=== PATIENT | male | born 1935 | race Caucasian/White ===

== ENCOUNTER 2018-05-13 19:56 | Emergency (ER) | payer SELFPAY, BC, MEDICARE | END 2018-05-13 21:00 | disposition left against medical advice (07) | LOC: E/R 19:56 | DX: Z53.21 Procedure and treatment not carried out due to patient leaving prior to being seen by health care provider (principal) | CPT/HCPCS: 93005 ==

== ENCOUNTER 2018-05-15 11:59 | Inpatient (IN) | payer MEDICARE, BC ==
[2018-05-15 13:29] LABS: ADD MAN DIFF? NO
[2018-05-15 13:41] LABS: WHITE BLOOD COUNT 6.4 10^3/ul (4.8-10.8)
[2018-05-15 13:41] LABS: ABNORMAL IP MESSAGE 1; BASOPHIL # 0.1 10^3/ul (0.0-0.1); BASOPHILS % 1.1 % (0.0-2.0); EOSINOPHILS # 0.1 10^3/ul (0.0-0.5); EOSINOPHILS % 1.4 % (0.0-7.0); HEMOGLOBIN 10.6 g/dl (14.0-18.0); LYMPHOCYTES # 0.4 10^3/ul (0.8-2.9); LYMPHOCYTES % 5.8 % (15.0-51.0); MEAN CORPUSCULAR HGB CONC 31.2 g/dl (32.0-37.0); MEAN CORPUSCULAR VOLUME 86.7 fl (82.0-101.0); MEAN PLATELET VOLUME 10.1 fl (7.4-10.4); MONOCYTE # 1.1 10^3/ul (0.3-0.9); MONOCYTES % 16.5 % (0.0-11.0); NEUTROPHIL # 4.8 10^3/ul (1.6-7.5); NEUTROPHILS % 74.6 % (39.0-77.0); PLATELET COUNT 362 10^3/UL (140-415); POSITIVE DIFF @See below; RED BLOOD COUNT 3.92 10^6/ul (4.70-6.10); RED CELL DISTRIBUTION WIDTH 16.4 % (11.5-14.5)
[2018-05-15 14:02] LABS: INR 1.12; PARTIAL THROMBOPLASTIN TIME 29.5 Sec (23.0-35.0); PROTIME 14.5 Sec (11.9-14.9); PT RATIO 1.1
[2018-05-15 14:03] LABS: ANION GAP 6 (5-13); BLOOD UREA NITROGEN 40 mg/dl (7-20); CALCIUM 9.9 mg/dl (8.4-10.2); CARBON DIOXIDE 31 mmol/L (21-31); CHLORIDE 102 mmol/L (97-110); CREATININE 1.38 mg/dl (0.61-1.24); GLUCOSE 99 mg/dl (70-220); POTASSIUM 4.8 mmol/L (3.5-5.1); SODIUM 139 mmol/L (135-144)
[2018-05-15 14:14] LABS: B-TYPE NATRIURETIC PEPTIDE 1730 PG/ML (0-450); TROPONIN-I 0.013 ng/ml (0.000-0.120)
[2018-05-15] MEDS: FUROSEMIDE 20 MG INJ IV (14:55)
[2018-05-15 15:38] LABS: URINE PH (Dip) POC 5.5 (5.0-8.5)
[2018-05-15 15:38] LABS: URINE BLOOD (Dip) POC Trace-intact (NEGATIVE); URINE GLUCOSE (Dip) POC Negative (NEGATIVE); URINE KETONES (Dip) POC Negative (NEGATIVE); URINE LEUKOCYTE EST (Dip) POC 1+ (NEGATIVE); URINE NITRITE (Dip) POC Negative (NEGATIVE); URINE TOTAL PROTEIN POC Trace (NEGATIVE)
[2018-05-15] MEDS ORDERED: ONDANSETRON 4 MG INJ IV (17:00)
[2018-05-15] MEDS ORDERED: NACL 0.9% 3 ML SYG IV (17:00)
[2018-05-15] MEDS ORDERED: DOCUSATE SODIUM 100 MG CAP PO (17:00)
[2018-05-15] MEDS ORDERED: ZOLPIDEM 5 MG TAB PO (17:00)
[2018-05-15 18:15] LABS: AADO2 Arterial 21.2 mmHg (7.0-24.0); Allen Test ACCEPTAB; Arterial Base Excess 4.8 mmol/L (-3.0-3); Arterial Blood Gas Oxygen Sat 93.8 mmHG (95.0-100.0); Arterial COHb 0.7 % (0.0-3.0); Arterial MetHb 0.2 % (0.0-1.5); Arterial pCO2 47.1 mmhg (35-45); MODE ROOM AIR; Site Right Radial
[2018-05-16] MEDS: POTASSIUM CHLORIDE (SR) 10 MEQ TAB PO (10:28)
[2018-05-16] MEDS: FUROSEMIDE 40 MG INJ IV ×2 (10:35→17:20)
[2018-05-16 10:40] LABS: ANION GAP 7 (5-13); BLOOD UREA NITROGEN 40 mg/dl (7-20); CALCIUM 9.9 mg/dl (8.4-10.2); CARBON DIOXIDE 32 mmol/L (21-31); CHLORIDE 101 mmol/L (97-110); CREATININE 1.44 mg/dl (0.61-1.24); GLUCOSE 93 mg/dl (70-220); MAGNESIUM 2.1 mg/dl (1.7-2.5); PHOSPHORUS 3.7 mg/dl (2.5-4.9); POTASSIUM 4.5 mmol/L (3.5-5.1); SODIUM 140 mmol/L (135-144)
[2018-05-16 10:43] LABS: HEMOGLOBIN A1C 5.5 % (0-5.9)
[2018-05-17 09:14] LABS: ADD MAN DIFF? NO
[2018-05-17 09:17] LABS: WHITE BLOOD COUNT 4.7 10^3/ul (4.8-10.8)
[2018-05-17 09:17] LABS: ABNORMAL IP MESSAGE 1; BASOPHIL # 0.1 10^3/ul (0.0-0.1); BASOPHILS % 1.3 % (0.0-2.0); EOSINOPHILS # 0.1 10^3/ul (0.0-0.5); EOSINOPHILS % 2.1 % (0.0-7.0); HEMATOCRIT 33.2 % (42.0-52.0); HEMOGLOBIN 10.5 g/dl (14.0-18.0); LYMPHOCYTES # 0.3 10^3/ul (0.8-2.9); LYMPHOCYTES % 6.2 % (15.0-51.0); MEAN CORPUSCULAR HEMOGLOBIN 27.3 pg (29.0-33.0); MEAN CORPUSCULAR HGB CONC 31.6 g/dl (32.0-37.0); MEAN CORPUSCULAR VOLUME 86.2 fl (82.0-101.0); MEAN PLATELET VOLUME 9.7 fl (7.4-10.4); MONOCYTE # 0.8 10^3/ul (0.3-0.9); MONOCYTES % 16.5 % (0.0-11.0); NEUTROPHIL # 3.4 10^3/ul (1.6-7.5); NEUTROPHILS % 73.5 % (39.0-77.0); PLATELET COUNT 367 10^3/UL (140-415); POSITIVE DIFF @See below; RED BLOOD COUNT 3.85 10^6/ul (4.70-6.10)
[2018-05-17 09:45] LABS: ANION GAP 9 (5-13); BLOOD UREA NITROGEN 42 mg/dl (7-20); CALCIUM 9.8 mg/dl (8.4-10.2); CARBON DIOXIDE 37 mmol/L (21-31); CHLORIDE 95 mmol/L (97-110); CREATININE 1.67 mg/dl (0.61-1.24); GLUCOSE 217 mg/dl (70-220); SODIUM 141 mmol/L (135-144)
[2018-05-17 10:19] LABS: HEPATITIS B SURFACE ANTIGEN NEGATIVE (NEGATIVE)
[2018-05-17 10:37] LABS: HEPATITIS B CORE ANTIBODY NEGATIVE (NEGATIVE); HEPATITIS C VIRAL ANTIBODY NEGATIVE (NEGATIVE)
[2018-05-17 11:17] LABS: HEPATITIS B SURFACE ANTIBODY NEGATIVE (NEGATIVE)
[2018-05-17 15:16] LABS: RHEUMATOID FACTOR NEGATIVE (NEGATIVE)
[2018-05-17] MEDS: LEVALBUTEROL (NEB) 0.63 MG/3 ML AMP HHN ×2 (15:44→23:56)
[2018-05-18 06:24] LABS: ADD MAN DIFF? NO
[2018-05-18 06:38] LABS: WHITE BLOOD COUNT 5.4 10^3/ul (4.8-10.8)
[2018-05-18 06:38] LABS: ABNORMAL IP MESSAGE 1; BASOPHIL # 0.1 10^3/ul (0.0-0.1); BASOPHILS % 1.3 % (0.0-2.0); EOSINOPHILS # 0.1 10^3/ul (0.0-0.5); EOSINOPHILS % 2.2 % (0.0-7.0); HEMATOCRIT 31.4 % (42.0-52.0); HEMOGLOBIN 9.7 g/dl (14.0-18.0); LYMPHOCYTES # 0.4 10^3/ul (0.8-2.9); LYMPHOCYTES % 7.9 % (15.0-51.0); MEAN CORPUSCULAR HEMOGLOBIN 26.6 pg (29.0-33.0); MEAN CORPUSCULAR HGB CONC 30.9 g/dl (32.0-37.0); MONOCYTES % 18.5 % (0.0-11.0); NEUTROPHIL # 3.7 10^3/ul (1.6-7.5); NEUTROPHILS % 69.7 % (39.0-77.0); PLATELET COUNT 365 10^3/UL (140-415); POSITIVE DIFF @See below; RED BLOOD COUNT 3.65 10^6/ul (4.70-6.10); RED CELL DISTRIBUTION WIDTH 15.9 % (11.5-14.5)
[2018-05-18 07:00] LABS: ALANINE AMINOTRANSFERASE 15 IU/L (13-69); ALBUMIN 3.4 g/dl (3.3-4.9); ALBUMIN/GLOBULIN RATIO 1.13; ALKALINE PHOSPHATASE 67 IU/L (42-121); ANION GAP 5 (5-13); ASPARTATE AMINO TRANSFERASE 19 IU/L (15-46); BILIRUBIN,INDIRECT 0.2 mg/dl (0-1.1); BILIRUBIN,TOTAL 0.2 mg/dl (0.2-1.3); BLOOD UREA NITROGEN 41 mg/dl (7-20); CALCIUM 9.5 mg/dl (8.4-10.2); CARBON DIOXIDE 37 mmol/L (21-31); CHLORIDE 97 mmol/L (97-110); CREATININE 1.47 mg/dl (0.61-1.24); GLUCOSE 106 mg/dl (70-220); POTASSIUM 4.4 mmol/L (3.5-5.1); SODIUM 139 mmol/L (135-144); TOTAL PROTEIN 6.4 g/dl (6.1-8.1)
[2018-05-18 07:51] LABS: MAGNESIUM 2.2 mg/dl (1.7-2.5)
[2018-05-18] MEDS: LEVALBUTEROL (NEB) 0.63 MG/3 ML AMP HHN ×2 (08:14→16:04)
[2018-05-18 08:59] LABS: ERYTHROCYTE SEDIMENTATION RATE 18 mm/Hr (0-20)
[2018-05-18] MEDS: POTASSIUM CHLORIDE (SR) 10 MEQ TAB PO (12:39)
[2018-05-18] MEDS: FUROSEMIDE 40 MG INJ IV (12:40)
[2018-05-18] MEDS: AZITHROMYCIN 250 MG TAB PO (14:36)
[2018-05-18] MEDS: AMPICILLIN/SULB 3 GM/NS (PMX) 100 ML IVPB ×3 (15:35→23:40)
[2018-05-18] MEDS: GUAIFENESIN/DM 5ML CUP PO (21:41)
[2018-05-19] MEDS: LEVALBUTEROL (NEB) 0.63 MG/3 ML AMP HHN ×4 (00:45→23:39)
[2018-05-19] MEDS: GUAIFENESIN/DM 5ML CUP PO ×2 (03:45→08:28)
[2018-05-19 05:37] LABS: ADD MAN DIFF? NO
[2018-05-19] MEDS: AMPICILLIN/SULB 3 GM/NS (PMX) 100 ML IVPB ×4 (05:49→23:16)
[2018-05-19 05:52] LABS: ABNORMAL IP MESSAGE 1; BASOPHIL # 0.1 10^3/ul (0.0-0.1); EOSINOPHILS # 0.1 10^3/ul (0.0-0.5); EOSINOPHILS % 1.6 % (0.0-7.0); HEMATOCRIT 30.9 % (42.0-52.0); HEMOGLOBIN 9.7 g/dl (14.0-18.0); LYMPHOCYTES # 0.3 10^3/ul (0.8-2.9); LYMPHOCYTES % 4.3 % (15.0-51.0); MEAN CORPUSCULAR HEMOGLOBIN 26.8 pg (29.0-33.0); MEAN CORPUSCULAR HGB CONC 31.4 g/dl (32.0-37.0); MEAN CORPUSCULAR VOLUME 85.4 fl (82.0-101.0); MONOCYTE # 1.4 10^3/ul (0.3-0.9); MONOCYTES % 19.6 % (0.0-11.0); NEUTROPHIL # 5.1 10^3/ul (1.6-7.5); NEUTROPHILS % 72.9 % (39.0-77.0); PLATELET COUNT 360 10^3/UL (140-415); POSITIVE DIFF @See below; RED BLOOD COUNT 3.62 10^6/ul (4.70-6.10); RED CELL DISTRIBUTION WIDTH 15.9 % (11.5-14.5)
[2018-05-19 05:52] LABS: WHITE BLOOD COUNT 6.9 10^3/ul (4.8-10.8)
[2018-05-19 06:06] LABS: ANION GAP 9 (5-13); BLOOD UREA NITROGEN 38 mg/dl (7-20); CALCIUM 9.4 mg/dl (8.4-10.2); CARBON DIOXIDE 36 mmol/L (21-31); CHLORIDE 96 mmol/L (97-110); CREATININE 1.47 mg/dl (0.61-1.24); GLUCOSE 117 mg/dl (70-220); MAGNESIUM 2.1 mg/dl (1.7-2.5); POTASSIUM 4.7 mmol/L (3.5-5.1); SODIUM 141 mmol/L (135-144)
[2018-05-19] MEDS: AZITHROMYCIN 250 MG TAB PO (08:28)
[2018-05-19 08:51] LABS: AMMONIA 23 umol/l (9-30)
[2018-05-19] MEDS: LORATADINE 10 MG TAB PO (11:00)
[2018-05-19] MEDS ORDERED: HYDROCODONE/HOMATROPINE 5ML CUP PO (13:00)
[2018-05-19 13:47] LABS: ANA SCREEN NEGATIVE (NEGATIVE)
[2018-05-19] MEDS: HYDROCODONE/HOMATROPINE 5ML CUP PO ×2 (14:19→20:47)
[2018-05-19] MEDS: SACCHAROMYCES BOULARDII 250 MG CAP PO (20:47)
[2018-05-20] MEDS: HYDROCODONE/HOMATROPINE 5ML CUP PO (02:46)
[2018-05-20] MEDS: AMPICILLIN/SULB 3 GM/NS (PMX) 100 ML IVPB (06:19)
[2018-05-20] MEDS: LEVALBUTEROL (NEB) 0.63 MG/3 ML AMP HHN ×2 (08:00→17:14)
[2018-05-20] MEDS: LORATADINE 10 MG TAB PO (08:26)
[2018-05-20] MEDS: AZITHROMYCIN 250 MG TAB PO (08:47)
[2018-05-20] MEDS: AMOXICILLIN/CLAV 875 MG TAB PO (08:47)
[2018-05-20] MEDS: L ACIDOPHIL/B LACTIS/B LONGUM CAPSULE PO ×2 (08:47→20:09)
[2018-05-20] MEDS: FUROSEMIDE 40 MG INJ IV (10:37)
[2018-05-20 11:41] LABS: NIL 0.02 IU/mL; QUANTIFERON(R)-TB GOLD NEGATIVE (NEGATIVE); TB2-NIL 0.01 IU/mL
[2018-05-20 14:45] LABS: ADD UMIC YES; UR ASCORBIC ACID NEGATIVE (NEGATIVE); UR BILIRUBIN (Dip) NEGATIVE (NEGATIVE); UR BLOOD (Dip) 2+ mg/dL (NEGATIVE); UR CLARITY CLEAR (CLEAR); UR COLOR YELLOW (YELLOW); UR GLUCOSE (Dip) NEGATIVE (NEGATIVE); UR KETONES (Dip) NEGATIVE (NEGATIVE); UR LEUKOCYTE ESTERASE (Dip) 1+ Leu/ul (NEGATIVE); UR MUCUS FEW /HPF (NONE SEEN); UR NITRITE (Dip) NEGATIVE (NEGATIVE); UR RBC 1 /HPF (0-5); UR TOTAL PROTEIN (Dip) NEGATIVE (NEGATIVE); UR UROBILINOGEN (Dip) NEGATIVE (NEGATIVE); UR WBC 2 /HPF (0-5)
[2018-05-20] MEDS: DIPHENHYDRAMINE 25 MG CAP PO (20:10)
[2018-05-21] MEDS: LEVALBUTEROL (NEB) 0.63 MG/3 ML AMP HHN ×3 (00:48→15:01)
[2018-05-21 05:39] LABS: ADD MAN DIFF? NO
[2018-05-21 05:48] LABS: ABNORMAL IP MESSAGE 1; BASOPHIL # 0.1 10^3/ul (0.0-0.1); BASOPHILS % 0.7 % (0.0-2.0); EOSINOPHILS % 0.1 % (0.0-7.0); HEMATOCRIT 29.9 % (42.0-52.0); HEMOGLOBIN 9.4 g/dl (14.0-18.0); LYMPHOCYTES # 0.2 10^3/ul (0.8-2.9); LYMPHOCYTES % 2.4 % (15.0-51.0); MEAN CORPUSCULAR HEMOGLOBIN 26.3 pg (29.0-33.0); MEAN CORPUSCULAR HGB CONC 31.4 g/dl (32.0-37.0); MEAN CORPUSCULAR VOLUME 83.8 fl (82.0-101.0); MEAN PLATELET VOLUME 9.8 fl (7.4-10.4); MONOCYTE # 1.4 10^3/ul (0.3-0.9); MONOCYTES % 16.4 % (0.0-11.0); NEUTROPHIL # 6.7 10^3/ul (1.6-7.5); NEUTROPHILS % 79.7 % (39.0-77.0); PLATELET COUNT 363 10^3/UL (140-415); POSITIVE DIFF @See below; RED BLOOD COUNT 3.57 10^6/ul (4.70-6.10); RED CELL DISTRIBUTION WIDTH 16.1 % (11.5-14.5)
[2018-05-21 05:48] LABS: WHITE BLOOD COUNT 8.4 10^3/ul (4.8-10.8)
[2018-05-21 06:21] LABS: ALANINE AMINOTRANSFERASE 17 IU/L (13-69); ALBUMIN 3.8 g/dl (3.3-4.9); ALBUMIN/GLOBULIN RATIO 1.31; ALKALINE PHOSPHATASE 73 IU/L (42-121); ANION GAP 9 (5-13); ASPARTATE AMINO TRANSFERASE 25 IU/L (15-46); BILIRUBIN,INDIRECT 0.3 mg/dl (0-1.1); BILIRUBIN,TOTAL 0.3 mg/dl (0.2-1.3); BLOOD UREA NITROGEN 39 mg/dl (7-20); CALCIUM 9.9 mg/dl (8.4-10.2); CARBON DIOXIDE 33 mmol/L (21-31); CHLORIDE 94 mmol/L (97-110); CREATININE 1.63 mg/dl (0.61-1.24); GLUCOSE 137 mg/dl (70-220); POTASSIUM 4.5 mmol/L (3.5-5.1); SODIUM 136 mmol/L (135-144); TOTAL PROTEIN 6.7 g/dl (6.1-8.1)
[2018-05-21] MEDS: AZITHROMYCIN 250 MG TAB PO (08:47)
[2018-05-21] MEDS: FUROSEMIDE 20 MG TAB PO (08:47)
[2018-05-21] MEDS: L ACIDOPHIL/B LACTIS/B LONGUM CAPSULE PO ×2 (08:47→20:33)
[2018-05-21] MEDS: LORATADINE 10 MG TAB PO (08:48)
[2018-05-21] MEDS: ACETAMINOPHEN 325 MG TAB PO (14:20)
[2018-05-21] MEDS: HYDROCODONE/HOMATROPINE 5ML CUP PO ×2 (14:25→20:33)
[2018-05-22] MEDS: LEVALBUTEROL (NEB) 0.63 MG/3 ML AMP HHN ×3 (00:14→15:37)
[2018-05-22 05:41] LABS: ADD MAN DIFF? NO
[2018-05-22 05:45] LABS: ABNORMAL IP MESSAGE 1; BASOPHILS % 0.6 % (0.0-2.0); EOSINOPHILS % 0.3 % (0.0-7.0); HEMATOCRIT 28.9 % (42.0-52.0); HEMOGLOBIN 8.9 g/dl (14.0-18.0); LYMPHOCYTES # 0.2 10^3/ul (0.8-2.9); LYMPHOCYTES % 3.2 % (15.0-51.0); MEAN CORPUSCULAR HGB CONC 30.8 g/dl (32.0-37.0); MEAN CORPUSCULAR VOLUME 84.5 fl (82.0-101.0); MEAN PLATELET VOLUME 9.7 fl (7.4-10.4); MONOCYTE # 1.1 10^3/ul (0.3-0.9); MONOCYTES % 17.4 % (0.0-11.0); NEUTROPHIL # 4.9 10^3/ul (1.6-7.5); PLATELET COUNT 311 10^3/UL (140-415); POSITIVE DIFF @See below; RED BLOOD COUNT 3.42 10^6/ul (4.70-6.10); RED CELL DISTRIBUTION WIDTH 16.2 % (11.5-14.5)
[2018-05-22 05:45] LABS: WHITE BLOOD COUNT 6.3 10^3/ul (4.8-10.8)
[2018-05-22 06:11] LABS: ANION GAP 10 (5-13)
[2018-05-22 06:13] LABS: BLOOD UREA NITROGEN 48 mg/dl (7-20); CALCIUM 9.7 mg/dl (8.4-10.2); CARBON DIOXIDE 34 mmol/L (21-31); CHLORIDE 93 mmol/L (97-110); CREATININE 1.59 mg/dl (0.61-1.24); GLUCOSE 114 mg/dl (70-220); POTASSIUM 4.8 mmol/L (3.5-5.1); SODIUM 137 mmol/L (135-144)
[2018-05-22] MEDS: LORATADINE 10 MG TAB PO (08:46)
[2018-05-22] MEDS: L ACIDOPHIL/B LACTIS/B LONGUM CAPSULE PO ×2 (08:46→20:51)
[2018-05-22] MEDS: AZITHROMYCIN 250 MG TAB PO (08:46)
[2018-05-22] MEDS: FUROSEMIDE 40 MG TAB PO (11:55)
[2018-05-22] MEDS: predniSONE 20 MG TAB PO (11:55)
[2018-05-22 13:47] LABS: PROCALCITONIN 0.16 ng/mL (<0.10)
[2018-05-22] MEDS: ACETAMINOPHEN 325 MG TAB PO (14:33)
[2018-05-22] MEDS: HYDROCODONE/HOMATROPINE 5ML CUP PO ×2 (14:38→20:51)
[2018-05-22 16:51] LABS: MYCOPLASMA PNEUMONIAE AB (IGG) 1.63
[2018-05-23] MEDS: LEVALBUTEROL (NEB) 0.63 MG/3 ML AMP HHN ×4 (00:11→23:56)
[2018-05-23] MEDS: HYDROCODONE/HOMATROPINE 5ML CUP PO (03:53)
[2018-05-23] MEDS: predniSONE 20 MG TAB PO (08:48)
[2018-05-23] MEDS: L ACIDOPHIL/B LACTIS/B LONGUM CAPSULE PO ×2 (08:49→20:52)
[2018-05-23] MEDS: LORATADINE 10 MG TAB PO (08:49)
[2018-05-23] MEDS: FUROSEMIDE 40 MG TAB PO ×2 (08:50→17:06)
[2018-05-23] MEDS: GUAIFENESIN/DM 5ML CUP PO (23:02)
[2018-05-24] MEDS: FUROSEMIDE 40 MG TAB PO (05:12)
[2018-05-24 06:06] LABS: ADD MAN DIFF? NO
[2018-05-24 06:09] LABS: ABNORMAL IP MESSAGE 1; BASOPHILS % 0.2 % (0.0-2.0); HEMATOCRIT 26.6 % (42.0-52.0); HEMOGLOBIN 8.4 g/dl (14.0-18.0); LYMPHOCYTES # 0.3 10^3/ul (0.8-2.9); LYMPHOCYTES % 4.7 % (15.0-51.0); MEAN CORPUSCULAR HGB CONC 31.6 g/dl (32.0-37.0); MEAN CORPUSCULAR VOLUME 82.4 fl (82.0-101.0); MEAN PLATELET VOLUME 10.5 fl (7.4-10.4); MONOCYTES % 16.1 % (0.0-11.0); NEUTROPHIL # 4.7 10^3/ul (1.6-7.5); NEUTROPHILS % 78.5 % (39.0-77.0); PLATELET COUNT 289 10^3/UL (140-415); POSITIVE DIFF @See below; RED BLOOD COUNT 3.23 10^6/ul (4.70-6.10); RED CELL DISTRIBUTION WIDTH 16.3 % (11.5-14.5)
[2018-05-24 06:37] LABS: ALANINE AMINOTRANSFERASE 18 IU/L (13-69); ALBUMIN 3.5 g/dl (3.3-4.9); ALKALINE PHOSPHATASE 59 IU/L (42-121); ANION GAP 9 (5-13); ASPARTATE AMINO TRANSFERASE 26 IU/L (15-46); BILIRUBIN,INDIRECT 0.1 mg/dl (0-1.1); BILIRUBIN,TOTAL 0.1 mg/dl (0.2-1.3); BLOOD UREA NITROGEN 58 mg/dl (7-20); CARBON DIOXIDE 33 mmol/L (21-31); CHLORIDE 95 mmol/L (97-110); CREATININE 1.63 mg/dl (0.61-1.24); GLUCOSE 110 mg/dl (70-220); POTASSIUM 4.7 mmol/L (3.5-5.1); SODIUM 137 mmol/L (135-144); TOTAL PROTEIN 6.4 g/dl (6.1-8.1)
[2018-05-24] MEDS: LEVALBUTEROL (NEB) 0.63 MG/3 ML AMP HHN ×2 (07:57→15:54)
[2018-05-24] MEDS: predniSONE 20 MG TAB PO (08:26)
[2018-05-24] MEDS: LORATADINE 10 MG TAB PO ×3 (08:26→09:00)
[2018-05-24] MEDS: BUDESONIDE (NEB) 0.5MG/2ML AMP HHN ×2 (10:30→20:57)
[2018-05-24] MEDS: L ACIDOPHIL/B LACTIS/B LONGUM CAPSULE PO ×2 (10:43→20:50)
[2018-05-24] MEDS: DIGOXIN 0.125 MG TAB PO (13:38)
[2018-05-24] MEDS: FUROSEMIDE 40 MG INJ IV (17:03)
[2018-05-25] MEDS: LEVALBUTEROL (NEB) 0.63 MG/3 ML AMP HHN ×3 (00:12→16:50)
[2018-05-25] MEDS: GUAIFENESIN/DM 5ML CUP PO (00:33)
[2018-05-25 05:31] LABS: ABNORMAL IP MESSAGE 1; HEMOGLOBIN 7.8 g/dl (14.0-18.0); MEAN CORPUSCULAR HEMOGLOBIN 25.8 pg (29.0-33.0); MEAN CORPUSCULAR HGB CONC 31.2 g/dl (32.0-37.0); MEAN CORPUSCULAR VOLUME 82.8 fl (82.0-101.0); PLATELET COUNT 239 10^3/UL (140-415); POSITIVE DIFF @See below; RED BLOOD COUNT 3.02 10^6/ul (4.70-6.10); RED CELL DISTRIBUTION WIDTH 16.4 % (11.5-14.5)
[2018-05-25 05:31] LABS: WHITE BLOOD COUNT 5.1 10^3/ul (4.8-10.8)
[2018-05-25 05:49] LABS: ADD MAN DIFF? YES
[2018-05-25 05:50] LABS: ANION GAP 8 (5-13); BLOOD UREA NITROGEN 62 mg/dl (7-20); CALCIUM 9.5 mg/dl (8.4-10.2); CARBON DIOXIDE 37 mmol/L (21-31); CHLORIDE 94 mmol/L (97-110); CREATININE 1.54 mg/dl (0.61-1.24); GLUCOSE 108 mg/dl (70-220); MAGNESIUM 2.1 mg/dl (1.7-2.5); PHOSPHORUS 4.1 mg/dl (2.5-4.9); POTASSIUM 4.3 mmol/L (3.5-5.1); SODIUM 139 mmol/L (135-144)
[2018-05-25 05:57] LABS: B-TYPE NATRIURETIC PEPTIDE 5030 PG/ML (0-450)
[2018-05-25 07:31] LABS: ANISOCYTOSIS 1+ (0-0); BURR CELLS 1+ (0-0); ERYTHROBLAST% (NRBC) (M) 1 % (0-0); HYPOCHROMASIA 1+ (0-0); LYMPHOCYTES #M 0.1 10^3/ul (0.8-2.9); LYMPHOCYTES % (M) 3 % (15-51); MICROCYTOSIS 1+ (0-0); MONOCYTE #M 0.5 10^3/ul (0.3-0.9); MONOCYTES % (M) 10 % (0-11); MYELOCYTES % (M) 1 % (0-0); OVALOCYTES 1+ (0-0); PLATELET ESTIMATE NORMAL; POIKILOCYTOSIS 1+ (0-0); POLYCHROMASIA 3+ (0-0); SEGMENTED NEUTROPHILS (M) % 86 % (39-77); SMUDGE%M 3 % (0-0); TARGET CELLS 1+ (0-0)
[2018-05-25] MEDS: BUDESONIDE (NEB) 0.5MG/2ML AMP HHN ×2 (08:19→20:05)
[2018-05-25] MEDS: L ACIDOPHIL/B LACTIS/B LONGUM CAPSULE PO ×2 (08:21→20:27)
[2018-05-25] MEDS: LORATADINE 10 MG TAB PO (08:22)
[2018-05-25] MEDS: predniSONE 20 MG TAB PO (08:22)
[2018-05-25] MEDS: FUROSEMIDE 40 MG TAB PO (08:24)
[2018-05-25] MEDS: DIGOXIN 0.125 MG TAB PO (12:35)
[2018-05-25] MEDS: FUROSEMIDE 40 MG INJ IV (17:26)
[2018-05-26] MEDS: LEVALBUTEROL (NEB) 0.63 MG/3 ML AMP HHN ×4 (00:35→20:32)
[2018-05-26] MEDS: GUAIFENESIN/DM 5ML CUP PO ×2 (01:08→21:57)
[2018-05-26 05:35] LABS: ADD MAN DIFF? NO
[2018-05-26 05:40] LABS: ABNORMAL IP MESSAGE 1; HEMATOCRIT 25.7 % (42.0-52.0); HEMOGLOBIN 8.1 g/dl (14.0-18.0); LYMPHOCYTES # 0.4 10^3/ul (0.8-2.9); LYMPHOCYTES % 6.4 % (15.0-51.0); MEAN CORPUSCULAR HEMOGLOBIN 25.8 pg (29.0-33.0); MEAN CORPUSCULAR HGB CONC 31.5 g/dl (32.0-37.0); MEAN CORPUSCULAR VOLUME 81.8 fl (82.0-101.0); MEAN PLATELET VOLUME 10.1 fl (7.4-10.4); MONOCYTE # 0.8 10^3/ul (0.3-0.9); MONOCYTES % 14.9 % (0.0-11.0); NEUTROPHIL # 4.4 10^3/ul (1.6-7.5); PLATELET COUNT 250 10^3/UL (140-415); POSITIVE DIFF @See below; RED BLOOD COUNT 3.14 10^6/ul (4.70-6.10); RED CELL DISTRIBUTION WIDTH 16.5 % (11.5-14.5)
[2018-05-26 05:40] LABS: WHITE BLOOD COUNT 5.6 10^3/ul (4.8-10.8)
[2018-05-26] MEDS: FUROSEMIDE 40 MG INJ IV ×2 (05:45→16:47)
[2018-05-26 06:27] LABS: ANION GAP 10 (5-13); BLOOD UREA NITROGEN 61 mg/dl (7-20); CALCIUM 9.6 mg/dl (8.4-10.2); CARBON DIOXIDE 33 mmol/L (21-31); CHLORIDE 96 mmol/L (97-110); GLUCOSE 107 mg/dl (70-220); SODIUM 139 mmol/L (135-144)
[2018-05-26 06:43] LABS: B-TYPE NATRIURETIC PEPTIDE 5490 PG/ML (0-450)
[2018-05-26] MEDS: BUDESONIDE (NEB) 0.5MG/2ML AMP HHN ×2 (08:37→20:32)
[2018-05-26] MEDS: predniSONE 20 MG TAB PO (08:54)
[2018-05-26] MEDS: L ACIDOPHIL/B LACTIS/B LONGUM CAPSULE PO ×2 (08:54→20:45)
[2018-05-26] MEDS: LORATADINE 10 MG TAB PO (08:54)
[2018-05-26 09:38] LABS: IRON 18 ug/dl (35-150)
[2018-05-26 09:47] LABS: % IRON SATURATION 7 % SAT (22-52); TOTAL IRON BINDING CAPACITY 268 ug/dl (241-421)
[2018-05-26 10:14] LABS: FERRITIN 44.3 ng/ml (11.1-264.0)
[2018-05-26] MEDS: DIGOXIN 0.125 MG TAB PO (13:24)
[2018-05-26] MEDS: EPOETIN 10000 UNITS/1 ML INJ (ESRD) SC (16:47)
[2018-05-27] MEDS: FUROSEMIDE 40 MG INJ IV ×2 (05:28→17:52)
[2018-05-27 05:38] LABS: ADD MAN DIFF? NO
[2018-05-27 05:39] LABS: WHITE BLOOD COUNT 6.7 10^3/ul (4.8-10.8)
[2018-05-27 05:39] LABS: ABNORMAL IP MESSAGE 1; BASOPHILS % 0.1 % (0.0-2.0); EOSINOPHILS % 0.1 % (0.0-7.0); HEMATOCRIT 26.3 % (42.0-52.0); HEMOGLOBIN 8.3 g/dl (14.0-18.0); LYMPHOCYTES # 0.4 10^3/ul (0.8-2.9); MEAN CORPUSCULAR HGB CONC 31.6 g/dl (32.0-37.0); MEAN CORPUSCULAR VOLUME 82.4 fl (82.0-101.0); MEAN PLATELET VOLUME 10.1 fl (7.4-10.4); MONOCYTE # 0.8 10^3/ul (0.3-0.9); MONOCYTES % 11.8 % (0.0-11.0); NEUTROPHIL # 5.4 10^3/ul (1.6-7.5); NEUTROPHILS % 81.1 % (39.0-77.0); NUCLEATED RED BLOOD CELLS% 0.3 /100WBC (0.0-0.0); PLATELET COUNT 261 10^3/UL (140-415); POSITIVE DIFF @See below; RED BLOOD COUNT 3.19 10^6/ul (4.70-6.10); RED CELL DISTRIBUTION WIDTH 16.4 % (11.5-14.5)
[2018-05-27 06:07] LABS: ALANINE AMINOTRANSFERASE 27 IU/L (13-69); ALBUMIN 3.3 g/dl (3.3-4.9); ALBUMIN/GLOBULIN RATIO 1.17; ALKALINE PHOSPHATASE 52 IU/L (42-121); ANION GAP 10 (5-13); ASPARTATE AMINO TRANSFERASE 23 IU/L (15-46); BILIRUBIN,INDIRECT 0.1 mg/dl (0-1.1); BILIRUBIN,TOTAL 0.1 mg/dl (0.2-1.3); BLOOD UREA NITROGEN 63 mg/dl (7-20); CALCIUM 9.6 mg/dl (8.4-10.2); CARBON DIOXIDE 37 mmol/L (21-31); CHLORIDE 95 mmol/L (97-110); CREATININE 1.61 mg/dl (0.61-1.24); GLUCOSE 100 mg/dl (70-220); MAGNESIUM 2.2 mg/dl (1.7-2.5); PHOSPHORUS 3.8 mg/dl (2.5-4.9); POTASSIUM 4.3 mmol/L (3.5-5.1); SODIUM 142 mmol/L (135-144); TOTAL PROTEIN 6.1 g/dl (6.1-8.1)
[2018-05-27 06:13] LABS: DIGOXIN 0.4 ng/ml (1.0-2.0)
[2018-05-27] MEDS: LEVALBUTEROL (NEB) 0.63 MG/3 ML AMP HHN ×3 (07:30→23:28)
[2018-05-27] MEDS: LORATADINE 10 MG TAB PO (08:34)
[2018-05-27] MEDS: L ACIDOPHIL/B LACTIS/B LONGUM CAPSULE PO ×2 (08:36→20:28)
[2018-05-27] MEDS: predniSONE 5 MG TAB PO (08:36)
[2018-05-27] MEDS: BUDESONIDE (NEB) 0.5MG/2ML AMP HHN ×2 (09:58→20:07)
[2018-05-27] MEDS: SOD FERRIC GLUC COMPLX 125 MG in SOD CHLORIDE 0.9% 100 ML IVPB (13:22)
[2018-05-27] MEDS: DIGOXIN 0.125 MG TAB PO (13:23)
[2018-05-28] MEDS: FUROSEMIDE 40 MG INJ IV ×2 (06:41→18:02)
[2018-05-28] MEDS: L ACIDOPHIL/B LACTIS/B LONGUM CAPSULE PO ×2 (08:24→20:34)
[2018-05-28] MEDS: predniSONE 5 MG TAB PO (08:24)
[2018-05-28] MEDS: LORATADINE 10 MG TAB PO (08:24)
[2018-05-28] MEDS: BUDESONIDE (NEB) 0.5MG/2ML AMP HHN ×2 (09:04→19:41)
[2018-05-28] MEDS: LEVALBUTEROL (NEB) 0.63 MG/3 ML AMP HHN ×2 (09:04→16:15)
[2018-05-28] MEDS: DIGOXIN 0.125 MG TAB PO (12:17)
[2018-05-28] MEDS: SOD FERRIC GLUC COMPLX 125 MG in SOD CHLORIDE 0.9% 100 ML IVPB (13:36)
[2018-05-28] MEDS: EPOETIN 10000 UNITS/1 ML INJ (ESRD) SC (18:03)
[2018-05-29] MEDS: LEVALBUTEROL (NEB) 0.63 MG/3 ML AMP HHN ×4 (00:04→23:17)
[2018-05-29] MEDS: FUROSEMIDE 40 MG INJ IV (05:36)
[2018-05-29 05:39] LABS: ADD MAN DIFF? NO
[2018-05-29 05:44] LABS: ABNORMAL IP MESSAGE 1; BASOPHILS % 0.1 % (0.0-2.0); EOSINOPHILS # 0.1 10^3/ul (0.0-0.5); EOSINOPHILS % 1.8 % (0.0-7.0); HEMATOCRIT 28.1 % (42.0-52.0); HEMOGLOBIN 8.6 g/dl (14.0-18.0); LYMPHOCYTES # 0.5 10^3/ul (0.8-2.9); LYMPHOCYTES % 6.7 % (15.0-51.0); MEAN CORPUSCULAR HEMOGLOBIN 25.3 pg (29.0-33.0); MEAN CORPUSCULAR HGB CONC 30.6 g/dl (32.0-37.0); MEAN CORPUSCULAR VOLUME 82.6 fl (82.0-101.0); MEAN PLATELET VOLUME 9.9 fl (7.4-10.4); MONOCYTE # 0.8 10^3/ul (0.3-0.9); MONOCYTES % 11.7 % (0.0-11.0); NEUTROPHIL # 5.3 10^3/ul (1.6-7.5); NEUTROPHILS % 78.7 % (39.0-77.0); NUCLEATED RED BLOOD CELLS% 0.4 /100WBC (0.0-0.0); PLATELET COUNT 308 10^3/UL (140-415); POSITIVE DIFF @See below; RED CELL DISTRIBUTION WIDTH 16.8 % (11.5-14.5)
[2018-05-29 05:44] LABS: WHITE BLOOD COUNT 6.7 10^3/ul (4.8-10.8)
[2018-05-29 06:09] LABS: ALANINE AMINOTRANSFERASE 29 IU/L (13-69); ALBUMIN 3.2 g/dl (3.3-4.9); ALKALINE PHOSPHATASE 59 IU/L (42-121); ANION GAP 7 (5-13); ASPARTATE AMINO TRANSFERASE 23 IU/L (15-46); BILIRUBIN,INDIRECT 0.2 mg/dl (0-1.1); BILIRUBIN,TOTAL 0.2 mg/dl (0.2-1.3); BLOOD UREA NITROGEN 55 mg/dl (7-20); CALCIUM 9.4 mg/dl (8.4-10.2); CARBON DIOXIDE 38 mmol/L (21-31); CHLORIDE 93 mmol/L (97-110); CREATININE 1.59 mg/dl (0.61-1.24); GLUCOSE 88 mg/dl (70-220); MAGNESIUM 2.2 mg/dl (1.7-2.5); PHOSPHORUS 3.7 mg/dl (2.5-4.9); POTASSIUM 3.8 mmol/L (3.5-5.1); SODIUM 138 mmol/L (135-144); TOTAL PROTEIN 6.1 g/dl (6.1-8.1)
[2018-05-29] MEDS: predniSONE 5 MG TAB PO (09:04)
[2018-05-29] MEDS: L ACIDOPHIL/B LACTIS/B LONGUM CAPSULE PO ×2 (09:04→22:09)
[2018-05-29] MEDS: LORATADINE 10 MG TAB PO (09:04)
[2018-05-29] MEDS: BUDESONIDE (NEB) 0.5MG/2ML AMP HHN ×2 (09:08→20:18)
[2018-05-29 09:40] LABS: AADO2 Arterial 11.4 mmHg (7.0-24.0); Allen Test ACCEPTAB; Arterial Base Excess 8.2 mmol/L (-3.0-3); Arterial COHb 0.1 % (0.0-3.0); Arterial Fraction of Oxyhgb 96.6 % (93.0-99.0); Arterial HCO3 31.6 mmol/L (22.0-26.0); Arterial MetHb 0.3 % (0.0-1.5); Arterial pCO2 39.4 mmhg (35-45); MODE ROOM AIR; Site Right Radial
[2018-05-29] MEDS: SOD FERRIC GLUC COMPLX 125 MG in SOD CHLORIDE 0.9% 100 ML IVPB (13:53)
[2018-05-29] MEDS: DIGOXIN 0.125 MG TAB PO (13:56)
[2018-05-30 06:48] LABS: ADD MAN DIFF? NO
[2018-05-30 06:51] LABS: WHITE BLOOD COUNT 7.4 10^3/ul (4.8-10.8)
[2018-05-30 06:51] LABS: ABNORMAL IP MESSAGE 1; BASOPHILS % 0.4 % (0.0-2.0); EOSINOPHILS # 0.1 10^3/ul (0.0-0.5); EOSINOPHILS % 1.9 % (0.0-7.0); HEMATOCRIT 28.7 % (42.0-52.0); HEMOGLOBIN 8.9 g/dl (14.0-18.0); LYMPHOCYTES # 0.5 10^3/ul (0.8-2.9); LYMPHOCYTES % 6.8 % (15.0-51.0); MEAN CORPUSCULAR HEMOGLOBIN 25.6 pg (29.0-33.0); MEAN CORPUSCULAR VOLUME 82.5 fl (82.0-101.0); MEAN PLATELET VOLUME 9.7 fl (7.4-10.4); MONOCYTES % 13.7 % (0.0-11.0); NEUTROPHIL # 5.6 10^3/ul (1.6-7.5); NEUTROPHILS % 75.4 % (39.0-77.0); NUCLEATED RED BLOOD CELLS% 0.3 /100WBC (0.0-0.0); PLATELET COUNT 311 10^3/UL (140-415); POSITIVE DIFF @See below; RED BLOOD COUNT 3.48 10^6/ul (4.70-6.10); RED CELL DISTRIBUTION WIDTH 17.3 % (11.5-14.5)
[2018-05-30 07:23] LABS: ALANINE AMINOTRANSFERASE 26 IU/L (13-69); ALBUMIN 3.4 g/dl (3.3-4.9); ALKALINE PHOSPHATASE 63 IU/L (42-121); ANION GAP 8 (5-13); ASPARTATE AMINO TRANSFERASE 26 IU/L (15-46); BILIRUBIN,INDIRECT 0.2 mg/dl (0-1.1); BILIRUBIN,TOTAL 0.2 mg/dl (0.2-1.3); BLOOD UREA NITROGEN 51 mg/dl (7-20); CALCIUM 9.3 mg/dl (8.4-10.2); CARBON DIOXIDE 36 mmol/L (21-31); CHLORIDE 95 mmol/L (97-110); CREATININE 1.63 mg/dl (0.61-1.24); GLUCOSE 87 mg/dl (70-220); POTASSIUM 4.1 mmol/L (3.5-5.1); SODIUM 139 mmol/L (135-144)
[2018-05-30 07:27] LABS: DIGOXIN 0.4 ng/ml (1.0-2.0)
[2018-05-30] MEDS: predniSONE 5 MG TAB PO (08:46)
[2018-05-30] MEDS: L ACIDOPHIL/B LACTIS/B LONGUM CAPSULE PO ×2 (08:46→21:29)
[2018-05-30] MEDS: LORATADINE 10 MG TAB PO ×2 (08:47→08:49)
[2018-05-30] MEDS: BUMETANIDE 1 MG TAB PO (08:47)
[2018-05-30] MEDS ORDERED: FUROSEMIDE 40 MG INJ IV (09:00)
[2018-05-30] MEDS: LEVALBUTEROL (NEB) 0.63 MG/3 ML AMP HHN ×3 (09:53→23:05)
[2018-05-30] MEDS: BUDESONIDE (NEB) 0.5MG/2ML AMP HHN ×2 (10:07→20:18)
[2018-05-30] MEDS: ACETAZOLAMIDE 500 MG INJ IV (10:21)
[2018-05-30] MEDS: DIGOXIN 0.125 MG TAB PO (13:05)
[2018-05-30] MEDS: SOD FERRIC GLUC COMPLX 125 MG in SOD CHLORIDE 0.9% 100 ML IVPB (14:04)
[2018-05-30] MEDS: EPOETIN 10000 UNITS/1 ML INJ (ESRD) SC (17:03)
[2018-05-30] MEDS: HYDROCODONE/HOMATROPINE 5ML CUP PO (21:32)
[2018-05-31 05:39] LABS: ADD MAN DIFF? NO
[2018-05-31 05:42] LABS: ABNORMAL IP MESSAGE 1; BASOPHILS % 0.6 % (0.0-2.0); EOSINOPHILS # 0.2 10^3/ul (0.0-0.5); EOSINOPHILS % 2.4 % (0.0-7.0); HEMATOCRIT 27.6 % (42.0-52.0); HEMOGLOBIN 8.3 g/dl (14.0-18.0); LYMPHOCYTES # 0.5 10^3/ul (0.8-2.9); LYMPHOCYTES % 6.8 % (15.0-51.0); MEAN CORPUSCULAR HEMOGLOBIN 25.4 pg (29.0-33.0); MEAN CORPUSCULAR HGB CONC 30.1 g/dl (32.0-37.0); MEAN CORPUSCULAR VOLUME 84.4 fl (82.0-101.0); MEAN PLATELET VOLUME 9.7 fl (7.4-10.4); MONOCYTES % 15.2 % (0.0-11.0); NEUTROPHILS % 73.7 % (39.0-77.0); PLATELET COUNT 268 10^3/UL (140-415); POSITIVE DIFF @See below; RED BLOOD COUNT 3.27 10^6/ul (4.70-6.10); RED CELL DISTRIBUTION WIDTH 17.9 % (11.5-14.5)
[2018-05-31 05:42] LABS: WHITE BLOOD COUNT 6.7 10^3/ul (4.8-10.8)
[2018-05-31 06:12] LABS: ALANINE AMINOTRANSFERASE 24 IU/L (13-69); ALBUMIN 3.1 g/dl (3.3-4.9); ALBUMIN/GLOBULIN RATIO 1.14; ALKALINE PHOSPHATASE 61 IU/L (42-121); ANION GAP 6 (5-13); ASPARTATE AMINO TRANSFERASE 20 IU/L (15-46); BILIRUBIN,INDIRECT 0.1 mg/dl (0-1.1); BILIRUBIN,TOTAL 0.1 mg/dl (0.2-1.3); BLOOD UREA NITROGEN 42 mg/dl (7-20); CALCIUM 9.2 mg/dl (8.4-10.2); CARBON DIOXIDE 33 mmol/L (21-31); CHLORIDE 98 mmol/L (97-110); GLUCOSE 92 mg/dl (70-220); POTASSIUM 4.2 mmol/L (3.5-5.1); SODIUM 137 mmol/L (135-144); TOTAL PROTEIN 5.8 g/dl (6.1-8.1)
[2018-05-31] MEDS: LORATADINE 10 MG TAB PO (09:00)
[2018-05-31] MEDS: LEVALBUTEROL (NEB) 0.63 MG/3 ML AMP HHN ×3 (09:42→19:58)
[2018-05-31] MEDS: BUDESONIDE (NEB) 0.5MG/2ML AMP HHN ×2 (09:42→19:53)
[2018-05-31] MEDS: BUMETANIDE 1 MG TAB PO ×2 (10:23→20:13)
[2018-05-31] MEDS: L ACIDOPHIL/B LACTIS/B LONGUM CAPSULE PO ×2 (10:23→20:14)
[2018-05-31] MEDS: SOD FERRIC GLUC COMPLX 125 MG in SOD CHLORIDE 0.9% 100 ML IVPB (13:28)
[2018-05-31] MEDS: DIGOXIN 0.125 MG TAB PO (13:29)
[2018-05-31] MEDS: HYDROCODONE/HOMATROPINE 5ML CUP PO (20:14)
[2018-06-01] MEDS: L ACIDOPHIL/B LACTIS/B LONGUM CAPSULE PO ×2 (08:22→19:50)
[2018-06-01] MEDS: BUMETANIDE 1 MG TAB PO ×2 (08:22→19:50)
[2018-06-01] MEDS: LORATADINE 10 MG TAB PO (08:22)
[2018-06-01] MEDS: BUDESONIDE (NEB) 0.5MG/2ML AMP HHN ×2 (08:39→20:06)
[2018-06-01] MEDS: LEVALBUTEROL (NEB) 0.63 MG/3 ML AMP HHN ×3 (08:39→23:21)
[2018-06-01 11:34] LABS: ANION GAP 8 (5-13); BLOOD UREA NITROGEN 37 mg/dl (7-20); CALCIUM 9.3 mg/dl (8.4-10.2); CARBON DIOXIDE 29 mmol/L (21-31); CHLORIDE 101 mmol/L (97-110); CREATININE 1.73 mg/dl (0.61-1.24); GLUCOSE 138 mg/dl (70-220); POTASSIUM 3.7 mmol/L (3.5-5.1); SODIUM 138 mmol/L (135-144)
[2018-06-01] MEDS: DIGOXIN 0.125 MG TAB PO (12:48)
[2018-06-01] MEDS: HYDROCODONE/HOMATROPINE 5ML CUP PO (19:51)
[2018-06-02] MEDS: LEVALBUTEROL (NEB) 0.63 MG/3 ML AMP HHN ×3 (08:00→21:12)
[2018-06-02] MEDS: BUDESONIDE (NEB) 0.5MG/2ML AMP HHN ×2 (08:57→21:01)
[2018-06-02] MEDS: BUMETANIDE 1 MG TAB PO ×2 (09:22→22:08)
[2018-06-02] MEDS: LORATADINE 10 MG TAB PO (09:22)
[2018-06-02] MEDS: L ACIDOPHIL/B LACTIS/B LONGUM CAPSULE PO ×2 (09:22→21:26)
[2018-06-02 11:06] LABS: ANION GAP 10 (5-13); BLOOD UREA NITROGEN 36 mg/dl (7-20); CALCIUM 9.1 mg/dl (8.4-10.2); CARBON DIOXIDE 27 mmol/L (21-31); CHLORIDE 98 mmol/L (97-110); CREATININE 1.72 mg/dl (0.61-1.24); GLUCOSE 140 mg/dl (70-220); SODIUM 135 mmol/L (135-144)
[2018-06-02] MEDS: DIGOXIN 0.125 MG TAB PO (13:24)
[2018-06-02] MEDS: EPOETIN 10000 UNITS/1 ML INJ (ESRD) SC (17:59)
[2018-06-02] MEDS: GUAIFENESIN/DM 5ML CUP PO (22:08)
[2018-06-02] MEDS: HYDROCODONE/HOMATROPINE 5ML CUP PO (22:14)
[2018-06-03] MEDS: LEVALBUTEROL (NEB) 0.63 MG/3 ML AMP HHN (08:45)
[2018-06-03] MEDS: BUDESONIDE (NEB) 0.5MG/2ML AMP HHN (08:45)
[2018-06-03] MEDS: BUMETANIDE 1 MG TAB PO (09:33)
[2018-06-03] MEDS: L ACIDOPHIL/B LACTIS/B LONGUM CAPSULE PO (09:33)
[2018-06-03] MEDS: LORATADINE 10 MG TAB PO (09:33)
[2018-06-03 09:36] LABS: ADD MAN DIFF? NO
[2018-06-03 09:43] LABS: ABNORMAL IP MESSAGE 1; BASOPHILS % 0.5 % (0.0-2.0); EOSINOPHILS # 0.1 10^3/ul (0.0-0.5); EOSINOPHILS % 0.9 % (0.0-7.0); HEMOGLOBIN 9.2 g/dl (14.0-18.0); LYMPHOCYTES # 0.3 10^3/ul (0.8-2.9); MEAN CORPUSCULAR HEMOGLOBIN 26.4 pg (29.0-33.0); MEAN CORPUSCULAR HGB CONC 30.7 g/dl (32.0-37.0); MEAN PLATELET VOLUME 10.3 fl (7.4-10.4); MONOCYTE # 1.4 10^3/ul (0.3-0.9); MONOCYTES % 18.9 % (0.0-11.0); NEUTROPHIL # 5.7 10^3/ul (1.6-7.5); NEUTROPHILS % 74.8 % (39.0-77.0); PLATELET COUNT 285 10^3/UL (140-415); POSITIVE DIFF @See below; RED BLOOD COUNT 3.49 10^6/ul (4.70-6.10); RED CELL DISTRIBUTION WIDTH 20.5 % (11.5-14.5)
[2018-06-03 09:43] LABS: WHITE BLOOD COUNT 7.6 10^3/ul (4.8-10.8)
[2018-06-03 10:05] LABS: ALANINE AMINOTRANSFERASE 20 IU/L (13-69); ALBUMIN 3.6 g/dl (3.3-4.9); ALBUMIN/GLOBULIN RATIO 1.16; ALKALINE PHOSPHATASE 76 IU/L (42-121); ANION GAP 8 (5-13); ASPARTATE AMINO TRANSFERASE 18 IU/L (15-46); BILIRUBIN,INDIRECT 0.7 mg/dl (0-1.1); BILIRUBIN,TOTAL 0.7 mg/dl (0.2-1.3); BLOOD UREA NITROGEN 32 mg/dl (7-20); CALCIUM 9.2 mg/dl (8.4-10.2); CARBON DIOXIDE 31 mmol/L (21-31); CHLORIDE 95 mmol/L (97-110); CREATININE 1.81 mg/dl (0.61-1.24); GLUCOSE 178 mg/dl (70-220); POTASSIUM 3.9 mmol/L (3.5-5.1); SODIUM 134 mmol/L (135-144); TOTAL PROTEIN 6.7 g/dl (6.1-8.1)
[2018-06-03] MEDS: DIGOXIN 0.125 MG TAB PO (13:00)
== END 2018-06-03 14:05 | disposition home or self-care (01) | DRG 292 ==
LOC: 6WM 05-20 02:12 → E/R 11:59 → 6WM 14:28
PROC: 3E0F7GC Introduction of Other Therapeutic Substance into Respiratory Tract, Via Natural or Artificial Opening (ICD-10-PCS; principal; 2018-05-15)
DX: I13.0 Hypertensive heart and chronic kidney disease with heart failure and stage 1 through stage 4 chronic kidney disease, or unspecified chronic kidney disease (principal); I50.40 Unspecified combined systolic (congestive) and diastolic (congestive) heart failure; I78.0 Hereditary hemorrhagic telangiectasia; I27.20 Pulmonary hypertension, unspecified; I48.91 Unspecified atrial fibrillation; J20.9 Acute bronchitis, unspecified; N18.3 Chronic kidney disease, stage 3 (moderate); K21.9 Gastro-esophageal reflux disease without esophagitis; J06.9 Acute upper respiratory infection, unspecified; D50.9 Iron deficiency anemia, unspecified
CPT/HCPCS: 36415; 36600; 71045; 71250; 80048; 80053; 80162; 81001; 81003; 82140; 82728; 82803; 83036; 83540; 83605; 83735; 83880; 84100; 84145; 84443; 84484; 85025; 85610; 85651; 85730; 86038; 86430; 86480; 86704; 86706; 86738; 86803; 87070; 87075; 87086; 87340; 93005; 93306; 93308; 93970; 94640; 94664; 97161; 99285-25

== ENCOUNTER 2018-11-10 16:20 | Inpatient (IN) | payer MEDICARE, BC ==
[2018-11-10] MEDS ORDERED: ACETAMINOPHEN 325 MG TAB PO (18:30)
[2018-11-10] MEDS ORDERED: NACL 0.9% 3 ML SYG IV (18:30)
[2018-11-10 19:02] LABS: ADD MAN DIFF? NO
[2018-11-10 19:03] LABS: WHITE BLOOD COUNT 10.6 10^3/ul (4.8-10.8)
[2018-11-10 19:03] LABS: ABNORMAL IP MESSAGE 1; BASOPHIL # 0.1 10^3/ul (0.0-0.1); BASOPHILS % 0.6 % (0.0-2.0); EOSINOPHILS % 0.3 % (0.0-7.0); HEMATOCRIT 31.9 % (42.0-52.0); HEMOGLOBIN 10.1 g/dl (14.0-18.0); LYMPHOCYTES # 0.2 10^3/ul (0.8-2.9); LYMPHOCYTES % 1.5 % (15.0-51.0); MEAN CORPUSCULAR HEMOGLOBIN 27.4 pg (29.0-33.0); MEAN CORPUSCULAR HGB CONC 31.7 g/dl (32.0-37.0); MEAN CORPUSCULAR VOLUME 86.7 fl (82.0-101.0); MEAN PLATELET VOLUME 9.7 fl (7.4-10.4); MONOCYTE # 1.1 10^3/ul (0.3-0.9); MONOCYTES % 10.5 % (0.0-11.0); NEUTROPHIL # 9.2 10^3/ul (1.6-7.5); NEUTROPHILS % 86.6 % (39.0-77.0); PLATELET COUNT 198 10^3/UL (140-415); POSITIVE DIFF @See below; RED BLOOD COUNT 3.68 10^6/ul (4.70-6.10); RED CELL DISTRIBUTION WIDTH 15.7 % (11.5-14.5)
[2018-11-10 19:25] LABS: IRON 20 ug/dl (35-150)
[2018-11-10 19:30] LABS: ALANINE AMINOTRANSFERASE 17 IU/L (13-69); ALBUMIN 4.2 g/dl (3.3-4.9); ALBUMIN/GLOBULIN RATIO 1.35; ALKALINE PHOSPHATASE 81 IU/L (42-121); ANION GAP 14 (5-13); ASPARTATE AMINO TRANSFERASE 23 IU/L (15-46); BILIRUBIN,INDIRECT 0.8 mg/dl (0-1.1); BILIRUBIN,TOTAL 0.8 mg/dl (0.2-1.3); BLOOD UREA NITROGEN 36 mg/dl (7-20); CALCIUM 9.9 mg/dl (8.4-10.2); CARBON DIOXIDE 21 mmol/L (21-31); CHLORIDE 106 mmol/L (97-110); CREATININE 1.39 mg/dl (0.61-1.24); GLUCOSE 144 mg/dl (70-220); PHOSPHORUS 3.2 mg/dl (2.5-4.9); POTASSIUM 4.7 mmol/L (3.5-5.1); SODIUM 141 mmol/L (135-144); TOTAL PROTEIN 7.3 g/dl (6.1-8.1)
[2018-11-10 19:35] LABS: % IRON SATURATION 7 % SAT (22-52); TOTAL IRON BINDING CAPACITY 294 ug/dl (241-421)
[2018-11-10 19:38] LABS: B-TYPE NATRIURETIC PEPTIDE 5780 PG/ML (0-450)
[2018-11-10 20:04] LABS: FERRITIN 21.8 ng/ml (11.1-264.0)
[2018-11-11 08:55] LABS: HEMOGLOBIN A1C 5.1 % (0-5.9)
[2018-11-11] MEDS: FUROSEMIDE 40 MG INJ IV (09:22)
[2018-11-11] MEDS: SOD FERRIC GLUC COMPLX 125 MG in SOD CHLORIDE 0.9% 100 ML IVPB (13:20)
[2018-11-12] MEDS: FUROSEMIDE 40 MG INJ IV (09:07)
[2018-11-12 09:16] LABS: ADD MAN DIFF? NO
[2018-11-12 09:21] LABS: ABNORMAL IP MESSAGE 1; BASOPHIL # 0.1 10^3/ul (0.0-0.1); BASOPHILS % 1.6 % (0.0-2.0); EOSINOPHILS # 0.2 10^3/ul (0.0-0.5); EOSINOPHILS % 5.4 % (0.0-7.0); HEMATOCRIT 31.7 % (42.0-52.0); LYMPHOCYTES # 0.2 10^3/ul (0.8-2.9); LYMPHOCYTES % 4.8 % (15.0-51.0); MEAN CORPUSCULAR HEMOGLOBIN 27.5 pg (29.0-33.0); MEAN CORPUSCULAR HGB CONC 31.5 g/dl (32.0-37.0); MEAN CORPUSCULAR VOLUME 87.3 fl (82.0-101.0); MEAN PLATELET VOLUME 9.9 fl (7.4-10.4); MONOCYTE # 0.8 10^3/ul (0.3-0.9); MONOCYTES % 18.3 % (0.0-11.0); NEUTROPHIL # 3.1 10^3/ul (1.6-7.5); NEUTROPHILS % 69.4 % (39.0-77.0); PLATELET COUNT 211 10^3/UL (140-415); POSITIVE DIFF @See below; RED BLOOD COUNT 3.63 10^6/ul (4.70-6.10); RED CELL DISTRIBUTION WIDTH 15.9 % (11.5-14.5)
[2018-11-12 09:21] LABS: WHITE BLOOD COUNT 4.4 10^3/ul (4.8-10.8)
[2018-11-12 09:38] LABS: ADD UMIC YES; UR ASCORBIC ACID NEGATIVE (NEGATIVE); UR BACTERIA FEW /HPF (NONE SEEN); UR BILIRUBIN (Dip) NEGATIVE (NEGATIVE); UR BLOOD (Dip) 2+ mg/dL (NEGATIVE); UR CLARITY CLEAR (CLEAR); UR COLOR YELLOW (YELLOW); UR GLUCOSE (Dip) NEGATIVE (NEGATIVE); UR KETONES (Dip) NEGATIVE (NEGATIVE); UR LEUKOCYTE ESTERASE (Dip) TRACE Leu/ul (NEGATIVE); UR MUCUS FEW /HPF (NONE SEEN); UR NITRITE (Dip) NEGATIVE (NEGATIVE); UR RBC 1 /HPF (0-5); UR SPECIFIC GRAVITY (Dip) 1.017 (1.003-1.030); UR TOTAL PROTEIN (Dip) NEGATIVE (NEGATIVE); UR UROBILINOGEN (Dip) NEGATIVE (NEGATIVE); UR WBC 7 /HPF (0-5)
[2018-11-12 09:46] LABS: ALANINE AMINOTRANSFERASE 21 IU/L (13-69); ALBUMIN 3.9 g/dl (3.3-4.9); ALBUMIN/GLOBULIN RATIO 1.34; ALKALINE PHOSPHATASE 66 IU/L (42-121); ANION GAP 8 (5-13); ASPARTATE AMINO TRANSFERASE 20 IU/L (15-46); BILIRUBIN,INDIRECT 0.5 mg/dl (0-1.1); BILIRUBIN,TOTAL 0.5 mg/dl (0.2-1.3); BLOOD UREA NITROGEN 38 mg/dl (7-20); CALCIUM 9.7 mg/dl (8.4-10.2); CARBON DIOXIDE 28 mmol/L (21-31); CHLORIDE 105 mmol/L (97-110); CREATININE 1.61 mg/dl (0.61-1.24); GLUCOSE 183 mg/dl (70-220); PHOSPHORUS 3.4 mg/dl (2.5-4.9); POTASSIUM 4.5 mmol/L (3.5-5.1); SODIUM 141 mmol/L (135-144); TOTAL PROTEIN 6.8 g/dl (6.1-8.1)
[2018-11-12] MEDS: SOD FERRIC GLUC COMPLX 125 MG in SOD CHLORIDE 0.9% 100 ML IVPB (14:47)
[2018-11-12] MEDS: SILDENAFIL 20 MG TAB PO ×3 (15:11→20:11)
[2018-11-12] MEDS: LEVALBUTEROL (NEB) 0.63 MG/3 ML AMP HHN (19:18)
[2018-11-13 06:40] LABS: ADD MAN DIFF? NO
[2018-11-13 06:43] LABS: ABNORMAL IP MESSAGE 1; BASOPHIL # 0.1 10^3/ul (0.0-0.1); BASOPHILS % 1.7 % (0.0-2.0); EOSINOPHILS # 0.3 10^3/ul (0.0-0.5); EOSINOPHILS % 7.2 % (0.0-7.0); HEMOGLOBIN 9.4 g/dl (14.0-18.0); LYMPHOCYTES # 0.3 10^3/ul (0.8-2.9); LYMPHOCYTES % 8.4 % (15.0-51.0); MEAN CORPUSCULAR HEMOGLOBIN 27.1 pg (29.0-33.0); MEAN CORPUSCULAR HGB CONC 31.3 g/dl (32.0-37.0); MEAN CORPUSCULAR VOLUME 86.5 fl (82.0-101.0); MEAN PLATELET VOLUME 9.5 fl (7.4-10.4); MONOCYTE # 0.8 10^3/ul (0.3-0.9); NEUTROPHIL # 2.5 10^3/ul (1.6-7.5); NEUTROPHILS % 62.5 % (39.0-77.0); PLATELET COUNT 185 10^3/UL (140-415); POSITIVE DIFF @See below; RED BLOOD COUNT 3.47 10^6/ul (4.70-6.10); RED CELL DISTRIBUTION WIDTH 15.8 % (11.5-14.5)
[2018-11-13 07:14] LABS: B-TYPE NATRIURETIC PEPTIDE 3580 PG/ML (0-450)
[2018-11-13 07:17] LABS: ALANINE AMINOTRANSFERASE 19 IU/L (13-69); ALBUMIN 3.6 g/dl (3.3-4.9); ALBUMIN/GLOBULIN RATIO 1.28; ALKALINE PHOSPHATASE 61 IU/L (42-121); ANION GAP 9 (5-13); ASPARTATE AMINO TRANSFERASE 18 IU/L (15-46); BILIRUBIN,INDIRECT 0.5 mg/dl (0-1.1); BILIRUBIN,TOTAL 0.5 mg/dl (0.2-1.3); BLOOD UREA NITROGEN 35 mg/dl (7-20); CALCIUM 9.4 mg/dl (8.4-10.2); CARBON DIOXIDE 28 mmol/L (21-31); CHLORIDE 104 mmol/L (97-110); CREATININE 1.42 mg/dl (0.61-1.24); GLUCOSE 108 mg/dl (70-220); SODIUM 141 mmol/L (135-144); TOTAL PROTEIN 6.4 g/dl (6.1-8.1)
[2018-11-13] MEDS: SILDENAFIL 20 MG TAB PO (08:11)
[2018-11-13] MEDS: LEVALBUTEROL (NEB) 0.63 MG/3 ML AMP HHN ×3 (10:40→19:33)
[2018-11-13] MEDS: SOD FERRIC GLUC COMPLX 125 MG in SOD CHLORIDE 0.9% 100 ML IVPB (13:00)
[2018-11-14] MEDS: LEVALBUTEROL (NEB) 0.63 MG/3 ML AMP HHN ×4 (01:28→19:32)
[2018-11-14] MEDS: FUROSEMIDE 20 MG TAB PO (10:57)
[2018-11-14] MEDS: AZITHROMYCIN 250 MG TAB PO (11:00)
[2018-11-14] MEDS: SOD FERRIC GLUC COMPLX 125 MG in SOD CHLORIDE 0.9% 100 ML IVPB (13:22)
[2018-11-15] MEDS: LEVALBUTEROL (NEB) 0.63 MG/3 ML AMP HHN ×3 (01:18→14:33)
[2018-11-15 06:35] LABS: ADD MAN DIFF? NO
[2018-11-15 06:39] LABS: ABNORMAL IP MESSAGE 1; BASOPHIL # 0.1 10^3/ul (0.0-0.1); BASOPHILS % 1.3 % (0.0-2.0); EOSINOPHILS # 0.3 10^3/ul (0.0-0.5); EOSINOPHILS % 6.7 % (0.0-7.0); HEMATOCRIT 29.3 % (42.0-52.0); HEMOGLOBIN 9.4 g/dl (14.0-18.0); LYMPHOCYTES # 0.4 10^3/ul (0.8-2.9); LYMPHOCYTES % 9.6 % (15.0-51.0); MEAN CORPUSCULAR HEMOGLOBIN 27.6 pg (29.0-33.0); MEAN CORPUSCULAR HGB CONC 32.1 g/dl (32.0-37.0); MEAN CORPUSCULAR VOLUME 86.2 fl (82.0-101.0); MEAN PLATELET VOLUME 9.7 fl (7.4-10.4); MONOCYTE # 0.6 10^3/ul (0.3-0.9); MONOCYTES % 16.3 % (0.0-11.0); NEUTROPHIL # 2.5 10^3/ul (1.6-7.5); NEUTROPHILS % 65.6 % (39.0-77.0); PLATELET COUNT 187 10^3/UL (140-415); POSITIVE DIFF @See below; RED CELL DISTRIBUTION WIDTH 15.9 % (11.5-14.5)
[2018-11-15 06:39] LABS: WHITE BLOOD COUNT 3.9 10^3/ul (4.8-10.8)
[2018-11-15 08:22] LABS: ALANINE AMINOTRANSFERASE 14 IU/L (13-69); ALBUMIN 3.6 g/dl (3.3-4.9); ALBUMIN/GLOBULIN RATIO 1.33; ALKALINE PHOSPHATASE 61 IU/L (42-121); ANION GAP 6 (5-13); ASPARTATE AMINO TRANSFERASE 25 IU/L (15-46); BILIRUBIN,INDIRECT 0.5 mg/dl (0-1.1); BILIRUBIN,TOTAL 0.5 mg/dl (0.2-1.3); BLOOD UREA NITROGEN 31 mg/dl (7-20); CALCIUM 9.5 mg/dl (8.4-10.2); CARBON DIOXIDE 29 mmol/L (21-31); CHLORIDE 105 mmol/L (97-110); CREATININE 1.38 mg/dl (0.61-1.24); GLUCOSE 104 mg/dl (70-220); POTASSIUM 4.5 mmol/L (3.5-5.1); SODIUM 140 mmol/L (135-144); TOTAL PROTEIN 6.3 g/dl (6.1-8.1)
[2018-11-15] MEDS: FUROSEMIDE 20 MG TAB PO (08:28)
[2018-11-15] MEDS: SOD FERRIC GLUC COMPLX 125 MG in SOD CHLORIDE 0.9% 100 ML IVPB (13:08)
[2018-11-15] MEDS: AZITHROMYCIN 250 MG TAB PO (14:47)
== END 2018-11-15 15:24 | disposition home or self-care (01) | DRG 291 ==
LOC: TEL 16:20
DX: I13.0 Hypertensive heart and chronic kidney disease with heart failure and stage 1 through stage 4 chronic kidney disease, or unspecified chronic kidney disease (principal); I50.33 Acute on chronic diastolic (congestive) heart failure; D62 Acute posthemorrhagic anemia; J20.9 Acute bronchitis, unspecified; I27.20 Pulmonary hypertension, unspecified; I48.2 Chronic atrial fibrillation; I78.0 Hereditary hemorrhagic telangiectasia; D63.8 Anemia in other chronic diseases classified elsewhere; N18.3 Chronic kidney disease, stage 3 (moderate); K21.9 Gastro-esophageal reflux disease without esophagitis; D50.9 Iron deficiency anemia, unspecified; R04.0 Epistaxis; H54.62 Unqualified visual loss, left eye, normal vision right eye; Z96.652 Presence of left artificial knee joint
CPT/HCPCS: 71045; 80053; 81001; 82728; 83036; 83540; 83735; 83880; 84100; 85025; 93005; 93306; 94640; 94664